=== PATIENT | female | born 1985 | race Caucasian/White ===

== ENCOUNTER 2017-03-08 04:35 | Emergency (ER) | payer OTHER ==
[~2017-03-08] VITALS: Ht 165.1 cm; Wt 54.9 kg
[~2017-03-08 04:35] MED LIST: ADDERALL10 MG PO; ADDERALL20 MG PO; ALBUTEROL SULF8.5 GM IH; BACTRIM,SEPT1 TABLET PO; BACTROBAN CREAM15 GM TP; BACTROBAN NASAL1 G1 BOTH NARES; BACTROBAN OINTM22 GM TP; BENTYL10 MG PO; BROMFED DM COU118 ML PO; CIPRO500 MG PO; CLEOCIN300 MG PO; CLINDAMYCIN HC300 MG PO; DOXYCYCLINE HY100 MG PO; ELIMITE 5% CREA60 GM TP; FIORICET 50-301 EACH PO; FLAGYL500 MG PO; INDOCIN25 MG PO; KENALOG,ARISTOC80 G1 TP; LITHIUM CARBON150 MG PO; LITHIUM CARBON300 M1 PO; LITHIUM CARBON300 MG PO; LITHIUM PO; MOTRIN800 MG PO; NAPROSYN375 MG PO; NAPROSYN500 MG PO; NORCO 5/3251 TABLET PO; PRAZOSIN HCL1 MG PO; SEROQUEL100 MG PO; SLOW RELEASE I142 M1 PO; STRATTERA10 MG PO; TESSALON200 MG PO; VALIUM5 MG PO; VENTOLIN HFA18 GM IH; VIBRAMYCIN100 MG PO; ZITHROMAX Z-PA250 MG PO; [UNRECOGNIZED DRUG - OTHER] TP; seroquel PO
[2017-03-08 06:13] VITALS: BP 113/88
== END 2017-03-08 06:20 | disposition home or self-care (01) ==
LOC: EME → EDBD 04:35 → EME 06:20
DX: S02.2XXA Fracture of nasal bones, initial encounter for closed fracture (principal); Y04.2XXA Assault by strike against or bumped into by another person, initial encounter; F10.10 Alcohol abuse, uncomplicated; F17.200 Nicotine dependence, unspecified, uncomplicated
CPT/HCPCS: 70450; 70486; 99281; 99284

== ENCOUNTER 2017-08-23 15:03 | Emergency (ER) | payer OTHER ==
[~2017-08-23] VITALS: Ht 165.1 cm; Wt 56.2 kg
[2017-08-23 16:29] VITALS: BP 100/72
[2017-08-24] MEDS ORDERED: TOBREX5 ML LEFT EYE (07:34)
== END 2017-08-23 19:47 | disposition left against medical advice (07) ==
LOC: EME 15:03
DX: T15.92XA Foreign body on external eye, part unspecified, left eye, initial encounter (principal); Z53.21 Procedure and treatment not carried out due to patient leaving prior to being seen by health care provider

== ENCOUNTER 2017-08-24 05:21 | Emergency (ER) | payer OTHER ==
[~2017-08-24] VITALS: Ht 165.1 cm; Wt 56.8 kg
[2017-08-24] MEDS ORDERED: TOBREX5 ML LEFT EYE (07:34)
[2017-08-24 07:55] VITALS: BP 139/90
== END 2017-08-24 08:02 | disposition home or self-care (01) ==
LOC: EME 05:21
DX: H57.12 Ocular pain, left eye (principal); E11.9 Type 2 diabetes mellitus without complications; Z88.0 Allergy status to penicillin; Z88.2 Allergy status to sulfonamides
CPT/HCPCS: 99281; 99284